=== PATIENT | male | born 1940 | race Caucasian/White ===

== ENCOUNTER 2021-02-13 08:08 | Emergency (ER) | payer OTHER, MEDICARE, BC ==
[~2021-02-13] VITALS: Ht 185.4 cm; Wt 89.8 kg
[2021-02-13] MEDS ORDERED: BRIMONIDINE TART5 M1 BOTHEYES (08:26)
[2021-02-13] MEDS ORDERED: TIMDOROPSO BOTHEYES (08:26)
[2021-02-13] MEDS ORDERED: LATA.005SO BOTHEYES (08:27)
[2021-02-13] MEDS ORDERED: RHOPRESSA2.5 ML BOTHEYES (08:27)
[2021-02-13] MEDS ORDERED: LEVSOD25 PO (08:28)
[2021-02-13] MEDS ORDERED: METF500 PO (08:28)
[2021-02-13] MEDS ORDERED: LIPITOR80 MG PO (08:29)
[2021-02-13] MEDS ORDERED: VENL75ER PO (08:30)
[2021-02-13] MEDS ORDERED: ASPI81CH PO (08:35)
== END 2021-02-13 10:45 | disposition home or self-care (01) ==
LOC: ER 08:08
DX: S01.81XA Laceration without foreign body of other part of head, initial encounter (principal); M25.512 Pain in left shoulder; E11.9 Type 2 diabetes mellitus without complications; E03.9 Hypothyroidism, unspecified; Z88.0 Allergy status to penicillin; Z79.899 Other long term (current) drug therapy; Z79.82 Long term (current) use of aspirin; Z23 Encounter for immunization; W18.30XA Fall on same level, unspecified, initial encounter; Y92.009 Unspecified place in unspecified non-institutional (private) residence as the place of occurrence of the external cause
CPT/HCPCS: 12011; 70450; 72125; 73030; 90471; 90714; 99284-25; A9270

== ENCOUNTER 2024-12-06 04:38 | Inpatient (IN) | payer OTHER, MEDICARE ==
[~2024-12-06] VITALS: Ht 182.9 cm; Wt 81.0 kg
[2024-12-06] VITALS (63 sets, daily range): BP systolic 91–165; BP diastolic 44–81
[~2024-12-06 04:38] MED LIST: ASPI81CH PO; BRIMONIDINE TART5 M1 BOTHEYES; LATA.005SO BOTHEYES; LEVSOD25 PO; LIPITOR80 MG PO; METF500 PO; RHOPRESSA2.5 ML BOTHEYES; TIMDOROPSO BOTHEYES; VENL75ER PO
[2024-12-06] MEDS ORDERED: Dopamine/Dextrose 250 ML IV SCH (05:00)
[2024-12-06] MEDS ORDERED: NS 1,000 ML IV SCH (05:05)
[2024-12-06] MEDS ORDERED: Midazolam HCL 50 MG in NS 40 ML IV PRN (05:05)
[2024-12-06] MEDS ORDERED: fentaNYL citrate 1,000 MCG in NS 80 ML IV SCH (05:10)
[2024-12-06 05:13] LABS: BASOPHILS ABSOLUTE AUTO 0.06 K/mm3 (0.00-0.23); BASOPHILS PERCENT AUTO 1 % (0-2); EOSINOPHILS ABSOLUTE AUTO 0.58 K/mm3 (0.00-0.68); EOSINOPHILS PERCENT AUTO 6 % (0-6); Hemoglobin 13.4 g/dL (13.5-17.5); IMMATURE GRAN ABSOLUTE AUTO 0.04 K/mm3 (0.00-0.10); IMMATURE GRAN PERCENT AUTO 0 % (0-1); LYMPHOCYTES ABSOLUTE AUTO 2.28 K/mm3 (0.84-5.20); LYMPHOCYTES PERCENT AUTO 24 % (21-46); MONOCYTES ABSOLUTE AUTO 0.76 K/mm3 (0.16-1.47); MONOCYTES PERCENT AUTO 8 % (4-13); Mean Corpuscular HGB 31.5 pg (26.0-34.0); Mean Corpuscular HGB Conc 31.9 g/dL (31.5-36.5); Mean Corpuscular Volume 99 fL (80-100); Mean Platelet Volume 10.2 fL (9.1-12.4); NEUTROPHILS ABSOLUTE AUTO 5.92 K/mm3 (1.96-9.15); NEUTROPHILS PERCENT AUTO 61 % (41-73); Platelet Count 360 K/mm3 (150-400); RDW Standard Deviation 47.3 fL (35.1-46.3); Red Blood Cell Count 4.25 M/mm3 (4.30-5.90); White Blood Cell Count 9.64 K/mm3 (4.00-11.30)
[2024-12-06] MEDS ORDERED: LORazepam 2 MG/ML 1ML Injection IV ONE (05:15)
[2024-12-06 05:22] LABS: PCO2 Arterial 36.4 mmHg (35-45); PO2 Arterial 345 mmHg (80-100)
[2024-12-06 05:26] LABS: Acetaminophen, Random <2.0 ug/mL (10.0-30.0); Alanine Aminotransfer (ALT/SGP 49 U/L (12-78); Albumin, Blood 2.9 g/dL (3.4-5.0); Alk Phos 89 U/L (50-136); Anion Gap 10 mmol/L (3-11); Aspartate Aminotrans (AST/SGOT 55 U/L (12-37); Bilirubin, Total 0.4 mg/dL (0.1-1.0); Blood Urea Nitrogen 19 mg/dL (8-24); Bun/Creatinine Ratio 24.1 (12.0-20.0); CO2, Blood 23 mmol/L (21-32); Chloride, Blood 108 mmol/L (98-108); Creatinine, Blood 0.79 mg/dL (0.60-1.20); Ethanol (Alcohol), Blood, Med <3 mg/dL; Globulin, Blood 2.9 g/dL (2.2-4.0); Glomerular Filtration Rate 88 (60-); Glucose, Blood 195 mg/dL (70-99); Magnesium, Blood 1.9 mg/dL (1.6-2.4); Salicylate <1.7 mg/dL (2.8-20.0); Sodium, Blood 137 mmol/L (136-145); Total Protein, Blood 5.8 g/dL (6.4-8.2)
[2024-12-06 05:45] LABS: Source, Urine Clean Catch
[2024-12-06 05:45] LABS: D-Dimer, Quantitative 0.7 mg/L FEU (0.00-0.52); International Normalized Ratio 1.02; Prothrombin Time Results 10.9 Sec (9.7-11.5)
[2024-12-06 05:48] LABS: Appearance, Urine Clear (Clear); Bilirubin, Urine Neg (Neg); Blood, Urine 4+ (Neg); Color, Urine Yellow (P-Yellow); Glucose Qualitative, Urine 4+ (Neg); Ketones, Urine Neg (Neg); Leukocyte Esterase, Urine Neg (Neg); Nitrite, Urine Neg (Neg); Protein, Urine 2+ (Neg); Urobilinogen, Urine NORM (Normal)
[2024-12-06 05:55] LABS: Hyaline Casts 0-2 /lpf (0-2); Squamous Epithelial Cells Few /hpf (Few)
[2024-12-06 05:56] LABS: Bacteria Few /hpf; Red Blood Cells, Urine 50-100 /hpf (0-2); White Blood Cells, Urine 0-2 /hpf (0-5)
[2024-12-06] MEDS ORDERED: Ondansetron HCl 2 MG / ML 2ML Vial IV PRN (06:05)
[2024-12-06] MEDS ORDERED: Cetylpyridinium Chloride 1 EA MISC MT SCH (06:05)
[2024-12-06 06:36] LABS: Free Thyroxine 0.93 ng/dL (0.70-1.60); Thyroid Stimulating Hormone 14.4 uIU/mL (0.360-4.800)
[2024-12-06] MEDS ORDERED: Heparin Sodium 1000 Units/ML 10ML MDV ONE (06:37)
[2024-12-06] MEDS ORDERED: Midazolam HCl 1MG / ML 2ML Vial ONE (06:37)
[2024-12-06] MEDS ORDERED: NS 1,000 ML IV ONE (06:37)
[2024-12-06] MEDS ORDERED: FentaNYL Citrate 50 MCG/ML 2 ML Injection ONE (06:37)
[2024-12-06] MEDS ORDERED: NS 250 ML IV ONE (06:37)
[2024-12-06] MEDS ORDERED: propofoL 50 ML IV ONE (06:44)
--- NOTE | 2024-12-06 08:15 | NUR ---
ASSUMPTION OF CARE: ASSUMED CARE OF PT AT 0815, ON ARRIVAL TO ICU 13. PT COMING FROM INSULATION PACKER. PT ARRIVES W/ RIGHT IJ TVP, SETTINGS RATE 70, MA 5, MV 2. TVP AT 36CM AT INSERTION. PT IS INTUBATED AND SEDATED. PT VENT SETTINGS AC/VC 14/500/5/50. PT SLIGHTLY MOVES UPPER EXTREMITIES W/STIMULATION. LUNG PÉREZ CLEAR THROUGHOUT,DIMINISHED AT BASES. ABD SOFT TO PALPATION. TEMP SALCEDO IN PLACE, PATENT AND DRAINING TO GRAVITY. PT HAS PERIPHERAL IVS IN BILATERAL ACS. PROPOFOL DRIP INFUSING AT 30MCG/KG/MIN. DOPAMINE DRIP INFUSING AT 4MCG/KG/MIN. FENTANYL INFUSING AT 100MCG/KG/MIN.
[2024-12-06] MEDS ORDERED: propofoL 100 ML IV ONE (08:17)
[2024-12-06] MEDS ORDERED: Pantoprazole Sodium 40 MG Injection IV SCH (09:00)
[2024-12-06] MEDS ORDERED: JARDIANCE25 MG PO ×2 (09:28→13:44)
[2024-12-06] MEDS ORDERED: COLCHICINE0.6 MG PO (09:29)
[2024-12-06] MEDS ORDERED: ARTIFICIAL TEAR15 M2 OP (09:30)
[2024-12-06] MEDS ORDERED: MEMA10 PO (09:31)
[2024-12-06] MEDS ORDERED: SERT100 PO (09:31)
--- NOTE | 2024-12-06 09:56 | NUR ---
PT UPDATE: DR DIAS IN ROOM CONSULTING
--- NOTE | 2024-12-06 10:20 | NUR ---
PT UPDATE: PROPOFOL DRIP DC'D. PT TOLERATING WELL.
[2024-12-06] MEDS ORDERED: propofoL 100 ML IV SCH (11:40)
[2024-12-06] MEDS ORDERED: Hydrogen Peroxide 1.5 % Solution MT SCH (12:00)
[2024-12-06] MEDS ORDERED: BUSP5 PO (13:46)
[2024-12-06] MEDS ORDERED: IBUP800 PO (13:52)
--- NOTE | 2024-12-06 14:48 | NUR ---
PT UPDATE: PT EXTUBATED AT 1412 TODAY. PT TOLERATING WELL. RT AND DR DIAS IN ROOM DURING EXTUBATION.
[2024-12-06] MEDS ORDERED: CefTRIAXone Sodium 1,000 MG in NS 100 ML IV SCH (15:30)
[2024-12-06] MEDS ORDERED: Rocuronium Bromide 10 MG/ML 5ML Injection IV ONE (16:12)
--- NOTE | 2024-12-06 18:42 | NUR ---
SHIFT SUMMARY: PT IS A&O X3, ABLE TO ANSWER QUESTIONS APPROPRIATELY AND MAKE NEEDS KNOWN. PT IS NOW ON RA, SATS >90%. LUNGS SOUNDS REMAIN CLEAR T/O ALL PÉREZ. DENIES CHEST PAIN. TVP TO RIGHT IJ. SETTINGS REMAIN AT 70, 5, 2. TVP AT 36CM AT INSERTION. ABD SOFT, NO TENDERNESS. AFTER EXTUBATION PT C/O OF SOME NAUSEA, ZOFRAN GIVEN, NO C/O SINCE. PT REMAINS NPO, TOLERATING ORAL SWABS. TEMP SALCEDO IN PLACE, PATENT, DRAINING TO GRAVITY. PT HAS BILAT PERIPHERAL IVS IN BILATERAL ACS. PT DOES NOT HAVE ANYTHING INFUSING AT THIS TIME. THIS RN TO REPORT TO ONCOMING RN.
--- NOTE | 2024-12-06 22:06 | NUR ---
ASSUME CARE: BEDSIDE REPORT RECIEVED FROM DAYSCAFT RN. PT A/Ox4 AND ABLE TO ASSIST WITH BEDSIDE REPORT. SPO2>95 ON RA, NO COMPLAINTS OF SOB. SBP 110s, MAP>65, PT DENIES CP OR PRESSURE. MONITOR SHOWS SINUS RYTHM WITH PACED BEATS. TRANSVENOUS PACEMAKER DRESSING C/D/I TO RIJ, AT 35 CM IN LENGTH, RATE 70, OUTPUT 5, SENSE 2. TEMP SALCEDO IN PLACE DRAINING TO GRAVITY. CALL LIGHT IN REACH. WILL UPDATE NEEDED.
[2024-12-06] MEDS ORDERED: Acetaminophen 325 MG TABLET PO PRN (23:45)
[2024-12-07] VITALS (89 sets, daily range): BP systolic 98–142; BP diastolic 44–110
[2024-12-07 03:45] LABS: BASOPHILS ABSOLUTE AUTO 0.03 K/mm3 (0.00-0.23); BASOPHILS PERCENT AUTO 0 % (0-2); EOSINOPHILS ABSOLUTE AUTO 0.01 K/mm3 (0.00-0.68); EOSINOPHILS PERCENT AUTO 0 % (0-6); Hematocrit 40.7 % (37.0-53.0); Hemoglobin 13.2 g/dL (13.5-17.5); IMMATURE GRAN ABSOLUTE AUTO 0.07 K/mm3 (0.00-0.10); IMMATURE GRAN PERCENT AUTO 1 % (0-1); LYMPHOCYTES ABSOLUTE AUTO 1.03 K/mm3 (0.84-5.20); LYMPHOCYTES PERCENT AUTO 7 % (21-46); MONOCYTES ABSOLUTE AUTO 1.26 K/mm3 (0.16-1.47); MONOCYTES PERCENT AUTO 8 % (4-13); Mean Corpuscular HGB 30.8 pg (26.0-34.0); Mean Corpuscular HGB Conc 32.4 g/dL (31.5-36.5); Mean Corpuscular Volume 95 fL (80-100); NEUTROPHILS ABSOLUTE AUTO 12.59 K/mm3 (1.96-9.15); NEUTROPHILS PERCENT AUTO 84 % (41-73); Platelet Count 354 K/mm3 (150-400); RDW Coefficient Variation 13.4 % (11.7-14.2); RDW Standard Deviation 46.8 fL (35.1-46.3); Red Blood Cell Count 4.28 M/mm3 (4.30-5.90); White Blood Cell Count 14.99 K/mm3 (4.00-11.30)
[2024-12-07 04:17] LABS: Albumin, Blood 3.1 g/dL (3.4-5.0); Bilirubin, Total 0.7 mg/dL (0.1-1.0); Creatinine, Blood 0.63 mg/dL (0.60-1.20); Free Thyroxine 1.05 ng/dL (0.70-1.60); Potassium, Blood 3.7 mmol/L (3.5-5.5); Thyroid Stimulating Hormone 1.16 uIU/mL (0.360-4.800); Total Protein, Blood 6.1 g/dL (6.4-8.2)
--- NOTE | 2024-12-07 05:11 | NUR ---
SHIFT SUMMARY: PT A/Ox4 AND PLEASANT WITH CARE T/O THE NIGHT, ABLE TO MAKE NEEDS KNOWN. PT DESAT TO 86% WITH SLEEP, 2L NC APPLIED, SPO2>90%. ALL OTHER VSS. TRANSVENOUS PACEMAKER IN PLACE, DRESSING C/D/I, NO CHANGES SINCE ASSUME CARE NOTE. SALCEDO PATENT DRAINING TO GRAVITY. PT ABLE TO TAKE SIPS OF WATER WITH MED ADMINISTRATION WITH NO ISSUES. PT FEBRILE T/O THE NIGHT, TMAX 100.5, MEDICATED PER EMAR. WILL REPORT TO ONCOMING RN.
[2024-12-07] MEDS ORDERED: Levothyroxine Sodium 0.075 MG Tab PO SCH (06:00)
--- NOTE | 2024-12-07 09:47 | NUR ---
ASSUMPTION OF CARE: ASSUMED CARE OF PT AT 0700. PT RESTING PEACEFULLY, STIRS SLIGHTLY TO VERBAL STIMULI. PT ON RA. SATS >90% PER NOC RN, PT WAS PLACED ON 2L VIA NC WHEN SLEEPING BECAUSE SATS WOULD DROP INTO 80%. BREATHING UNLABORED. SBP IN 100-120S. HR 70S,SOMETIMES DROPPING INTO HIGH 60S. NO N/V REPORTED. TEMP SALCEDO REMAINS IN PLACE, PATENT, DRAINING KEM URINE TO GRAVITY. PT HAS NEW R WRIST PERIPHERAL IV AND LAC IV. NOTHING RUNNING AT THIS TIME. THIS RN TO CONTINUE TO MONITOR.
--- NOTE | 2024-12-07 18:46 | NUR ---
SHIFT SUMMARY: PT REMAINS A&OX4. ABLE TO COMMUNICATE HIS NEEDS. PT SBP HAS BEEN IN 110S-130S. HR 70S. SINUS PACED. PT HAS TVP TO RIGHT IJ. SETTINGS REMAIN AT 70,5,2. TVP AT 36CM AT INSERTION. PT REMAINS ON RA, SATS >90%. BREATHING UNLABORED. LUNG PÉREZ CLEAR T/O. ABD SOFT, NO TENDERNESS OR DISTENTION NOTED. PT HAS BEEN TOLERATING SOLIDS AND EATING INDEPENDENTLY. NOELLE SALCEDO REMOVED TODAY, PT USING URINAL W/MIN ASSISTANCE. THIS RN TO REPORT TO ONCOMING RN.
--- NOTE | 2024-12-07 19:57 | NUR ---
ASSUME CARE: BEDSIDE REPORT RECIEVED FROM DAYSHIFT. PT A/Ox4 AND PLEASANT WITH CARE. PT ABLE TO MAKE NEEDS KNOWN, AND INSTRUCTED TO USE CALL LIGHT FOR ANY NEEDS. PT AWARE AND AGREEABLE OF CURRENT PLAN FOR NPO AT 2200 FOR PROCEDURE IN THE AM. VSS. TEMP PACEMAKER IN PLACE TO RIJ, DRESSING C/D/I. WILL UPDATE NEEDED.
[2024-12-08] VITALS (47 sets, daily range): BP systolic 108–157; BP diastolic 30–104
--- NOTE | 2024-12-08 05:29 | NUR ---
SHIFT SUMMARY: PT A/Ox4 AND PLEASANT W/CARE T/O THE NIGHT. PT EXPRESSES THAT HE IS ANXIOUS ABOUT FUTURE PROCEDURES, AND DID NOT GET MUCH SLEEP. VSS, AFEBFRILE T/O NIGHT. MONITOR SHOWS SINUS RYTHM W/PACED BEATS. TEMP PACEMAKER TO RIJ, DRESSING C/D/I. PT NPO SINCE 2199 LAST NIGHT FOR PROCEDURE IN AM. PT USES URINAL AT BEDSIDE, URINE DARK YELLOW, LITTLE OUTPUT LAST NIGHT. PT COMPLAINS OF PAIN WHEN HE URINATES DUE TO PRIOR SALCEDO. PT ALSO COMPLAINS OF PAIN IN HIS KNEES DUE TO FALL AT HOME, REPOSITIONED AND MEDICATED PER EMAR. WILL REPORT TO ONCOMING RN.
[2024-12-08] MEDS ORDERED: EpiNEPhrine 1 MG/1 ML 1ML Vial ONE (06:17)
[2024-12-08] MEDS ORDERED: Benzocaine Oral Spray 0.5ML UD ONE (06:41)
[2024-12-08] MEDS ORDERED: NS 1,000 ML IV ONE ×3 (07:18→14:46)
--- NOTE | 2024-12-08 07:26 | NUR ---
PT PREPPED BY AND CARRILLO HORTA. CK IN TO START PROCEDURE.
--- NOTE | 2024-12-08 07:51 | NUR ---
PROCEDURE COMPLETE, 260MCG PROPOFOL FROM . PT WAKING UP SOME, AND SON IN THE ROOM.
[2024-12-08] MEDS ORDERED: CeFAZolin Sodium 2,000 MG in NS 100 ML IV SCH ×2 (08:45→23:00)
[2024-12-08] MEDS ORDERED: NS 1,000 ML IV SCH (08:45)
[2024-12-08 09:11] LABS: BASOPHILS ABSOLUTE AUTO 0.06 K/mm3 (0.00-0.23); BASOPHILS PERCENT AUTO 1 % (0-2); EOSINOPHILS ABSOLUTE AUTO 0.26 K/mm3 (0.00-0.68); EOSINOPHILS PERCENT AUTO 2 % (0-6); Hematocrit 41.4 % (37.0-53.0); Hemoglobin 13.3 g/dL (13.5-17.5); IMMATURE GRAN ABSOLUTE AUTO 0.04 K/mm3 (0.00-0.10); IMMATURE GRAN PERCENT AUTO 0 % (0-1); LYMPHOCYTES ABSOLUTE AUTO 0.89 K/mm3 (0.84-5.20); LYMPHOCYTES PERCENT AUTO 8 % (21-46); MONOCYTES ABSOLUTE AUTO 1.26 K/mm3 (0.16-1.47); MONOCYTES PERCENT AUTO 12 % (4-13); Mean Corpuscular HGB Conc 32.1 g/dL (31.5-36.5); Mean Corpuscular Volume 97 fL (80-100); NEUTROPHILS ABSOLUTE AUTO 8.32 K/mm3 (1.96-9.15); NEUTROPHILS PERCENT AUTO 77 % (41-73); Platelet Count 314 K/mm3 (150-400); RDW Coefficient Variation 13.3 % (11.7-14.2); RDW Standard Deviation 47.7 fL (35.1-46.3); Red Blood Cell Count 4.29 M/mm3 (4.30-5.90); White Blood Cell Count 10.83 K/mm3 (4.00-11.30)
[2024-12-08 09:15] LABS: Bun/Creatinine Ratio 43.2 (12.0-20.0); Calcium, Blood 8.2 mg/dL (8.5-10.1); Creatinine, Blood 0.56 mg/dL (0.60-1.20); Magnesium, Blood 1.8 mg/dL (1.6-2.4); Potassium, Blood 3.5 mmol/L (3.5-5.5)
--- NOTE | 2024-12-08 12:45 | NUR ---
SPOKE WITH ABOUT PATIENT'S CONTINUED PAIN IN THE KNEES. REQUESTING ADDITIONAL TYLENOL DOSE BUT IT IS TOO SOON. ORDERS MORPHINE, HE IS NPO FOR PACEMAKER PLACEMENT THIS AFTERNOON.
[2024-12-08] MEDS ORDERED: Morphine Sulfate 4 MG/1 ML Injection IV PRN (12:50)
[2024-12-08] MEDS ORDERED: Lidocaine 2%-Epineph 1:100000 20 ML MDV ONE (13:56)
[2024-12-08] MEDS ORDERED: Heparin Sodium 1000 Units/ML 10ML MDV ONE ×4 (13:56→14:50)
[2024-12-08] MEDS ORDERED: NS 2,000 ML IV ONE (13:56)
[2024-12-08] MEDS ORDERED: Dorzolamide/Timolol Opth Soln 10 ML BOTHEYES SCH (14:00)
--- NOTE | 2024-12-08 14:19 | NUR ---
PT TO [facility]ER WITH [facility], CHARACTER IMPERSONATOR PATRICK WENT TO WATCH WELL.
[2024-12-08] MEDS ORDERED: Midazolam HCl 1MG / ML 2ML Vial ONE ×2 (14:37→15:11)
[2024-12-08] MEDS ORDERED: FentaNYL Citrate 50 MCG/ML 2 ML Injection ONE ×2 (14:37→15:09)
[2024-12-08] MEDS ORDERED: CeFAZolin Sodium 2,000 MG VIAL ONE (14:40)
[2024-12-08] MEDS ORDERED: NS 100 ML IV ONE (14:41)
[2024-12-08] MEDS ORDERED: HYDROcodone 5-APAP 325 TAB PO PRN (16:00)
[2024-12-08] MEDS ORDERED: OxyCODONE HCL 5 MG TAB PO PRN (16:00)
[2024-12-08] MEDS ORDERED: Propofol 10mg/ml 20 ml Vial (Procedural) IV ONE (16:30)
--- NOTE | 2024-12-08 17:13 | NUR ---
PT TRANSFERRED TO PCU 13, AFTER REPORT TO BARRY MCGARRY RN AND UPDATE TO THE PATIENT AND FAMILY. PT IS AWARE OF NO MOVEMENT OF RIGHT LEG FOR DURATION OF THE 4 HOUR TIME FRAME. VISUAL CHECK OF RIGHT GROIN SITE AND RIGHT JUGULAR WITH BARRY AT BEDSIDE.
--- NOTE | 2024-12-08 17:46 | NUR ---
Pt arrived to PCU around 5 pm after telephone report received from SHADE Yeboah. Pt in PCU 13, and son at bedside. PT right groin site noted to have closure device in place, no bleeding, no swelling, no bruising noted. gauze and tegederm dressing surrounding the device which to remain in place until Dr. Casper removes it in the morning. Requested materials for that removal were placed at bedside at this time. Pt has good distal pulses, good circulation and is in sinus rhythm at 89 bpm. Vital signs are stable and the pt has no c/o pain nor discomfort. He is drinking and voiding without difficulty. Remains in the supine position with the right leg straight until 1930.
[2024-12-09 03:33] VITALS: BP 121/58
[2024-12-09 04:17] LABS: BASOPHILS ABSOLUTE AUTO 0.05 K/mm3 (0.00-0.23); BASOPHILS PERCENT AUTO 0 % (0-2); EOSINOPHILS ABSOLUTE AUTO 0.29 K/mm3 (0.00-0.68); EOSINOPHILS PERCENT AUTO 3 % (0-6); Hematocrit 41.9 % (37.0-53.0); Hemoglobin 13.4 g/dL (13.5-17.5); IMMATURE GRAN ABSOLUTE AUTO 0.06 K/mm3 (0.00-0.10); IMMATURE GRAN PERCENT AUTO 1 % (0-1); LYMPHOCYTES ABSOLUTE AUTO 0.87 K/mm3 (0.84-5.20); LYMPHOCYTES PERCENT AUTO 7 % (21-46); MONOCYTES ABSOLUTE AUTO 1.42 K/mm3 (0.16-1.47); MONOCYTES PERCENT AUTO 12 % (4-13); Mean Corpuscular HGB 30.9 pg (26.0-34.0); Mean Corpuscular Volume 97 fL (80-100); NEUTROPHILS ABSOLUTE AUTO 9.11 K/mm3 (1.96-9.15); NEUTROPHILS PERCENT AUTO 77 % (41-73); Platelet Count 297 K/mm3 (150-400); RDW Standard Deviation 46.9 fL (35.1-46.3); Red Blood Cell Count 4.33 M/mm3 (4.30-5.90)
[2024-12-09 04:43] LABS: Bun/Creatinine Ratio 45.3 (12.0-20.0); Calcium, Blood 8.4 mg/dL (8.5-10.1); Creatinine, Blood 0.49 mg/dL (0.60-1.20); Magnesium, Blood 1.8 mg/dL (1.6-2.4); Potassium, Blood 4.1 mmol/L (3.5-5.5)
--- NOTE | 2024-12-09 05:32 | NUR ---
SHIFT SUMMARY PT A&O X4, CALM, COOPERATIVE TO CARE. HR IN THE 70'S-80'S, SINUS RHYTHM, HE DENIES CP/PRESSURE, NUMB/TINGLING, SBP STABLE. O2 >92% ON RA, WHILE ASLEEP PT DID DESAT TO THE LOW 70'S BUT RECOVERED QUICKLY. HE DENIES SOB AT THIS TIME. PT WITH RIGHT GROIN SITE FROM PACEMAKER INSERTION. PRESSURE DEVICE IN PLACE, T BE REMOVED THIS SHIFT. SITE COVERED WITH GAUZE AND TEGADERM , C/D/I. PT ALSO HAS RIGHT NECK SITE FROM TEMPORARY PACER, SITE COVERED WITH GUAZE AND TEGADERM, C/D/I. PT WITH PAIN IN BILATERAL KNEES, MEDICATING PER EMAR. EKG COMPLETED THIS AM. PT RESTING IN BED AT THIS TIME. CALL LIGHT IN REACH. WILL REPORT TO ONCOMING RN.
--- NOTE | 2024-12-09 07:04 | NUR ---
Bedside shift report received from Christel. Pt states that he has not been out of bed, and doesn't even want to try because his knees are much too painful. They are both swollen and pt states he thinks that he fell on his knees when he passed out at home.
[2024-12-09 07:34] VITALS: BP 121/60
--- NOTE | 2024-12-09 08:34 | NUR ---
Dr. Casper here, removed closure device in the right groin and applied dressing which should stay in place and be kept dry for 1 week. Grease Maker states ok for discharge or transfer to medical floor without telemetry per hospitalist depending on pt's ambulatory status.
[2024-12-09] MEDS ORDERED: TIMO.5OPSO BOTHEYES (09:18)
[2024-12-09] MEDS ORDERED: PRED FORTE5 ML BOTHEYES (09:19)
[2024-12-09] MEDS ORDERED: OCUFLOX511 BOTHEYES (09:21)
--- NOTE | 2024-12-09 10:01 | NUR ---
Ice packs applied to both knees for relief of swelling and pain.
--- NOTE | 2024-12-09 11:04 | NUR ---
Up to [facility] [place], walker and 2 person staff assist. Personal hygiene completed while he was up. PT and OT have called and will come see the patient shortly.
[2024-12-09] MEDS ORDERED: Colchicine 0.6 MG TAB PO SCH (12:35)
[2024-12-09] MEDS ORDERED: Sennosides 8.6 MG Tab PO SCH (12:35)
[2024-12-09] MEDS ORDERED: Empagliflozin 25 MG TAB PO SCH (12:40)
--- NOTE | 2024-12-09 13:44 | NUR ---
Pt tolerated BSC and therapy sessions today. Sitting up in chair, states that he is feeling better after activity and norco tablet. Requested bowel care which was given to him. Dr. Fry resumed some home medications, communicated this to patient and his Estefanía.
[2024-12-09] MEDS ORDERED: Timolol 0.5% Opth Soln 5 ML BOTHEYES SCH (14:00)
[2024-12-09] MEDS ORDERED: Ofloxacin 0.3% Opth Soln 5 ML BOTHEYES SCH (14:00)
[2024-12-09 14:44] LABS: LYME VLSE1/PEPC10 ABS, ELISA 0.21 IV (<=0.90)
--- NOTE | 2024-12-09 15:37 | NUR ---
Pt states he is feeling pretty good after working with physical therapist, and walking in the hallway. Pt education started for Leadless paceaker insertion, care after as well as care of femoral access site. He was also given information about his follow up appointment for next December 16 at 0800 for the wound check. pt was instructed that he is to keep the right groin site clean and dry, no showering/baths/hot tubs until his wound check appointment. He verbalized understanding.
[2024-12-09 15:39] VITALS: BP 139/63
[2024-12-09 19:49] VITALS: BP 136/59
[2024-12-09] MEDS ORDERED: Memantine HCL 5 MG Tab PO SCH (21:00)
[2024-12-09] MEDS ORDERED: Latanoprost 0.005% Opth Soln 2.5 ML RIGHTEYE SCH (21:00)
[2024-12-09] MEDS ORDERED: NETARSUDIL 0.02% RIGHTEYE SCH (21:00)
[2024-12-09] MEDS ORDERED: Timolol 0.5% Opth Soln 5 ML LEFTEYE SCH (21:00)
[2024-12-09] MEDS ORDERED: PrednisoLONE 1% Opth Susp 5 ML BOTHEYES SCH (21:00)
[2024-12-09] MEDS ORDERED: PrednisoLONE 1% Opth Susp 5 ML LEFTEYE SCH (21:00)
[2024-12-09] MEDS ORDERED: Brimonidine Tartrate 0.2% Opth 5 ml RIGHTEYE SCH (21:00)
[2024-12-10 03:31] VITALS: BP 18/94
--- NOTE | 2024-12-10 06:17 | NUR ---
SHIFT SUMMARY: PT IS ALERT AND OIENTED ABLE TO MAKE HIS NEEDS KNOWN, NO TELE ORDERS AT THIS TIME, LUNGS CLEAR ON RA, CONT OF BAB, PT DID ENDORSE BURNING WITH URINATION, NO OTHER S,SX OF POTENTIAL INFETION, PT DID HAVE A SALCEDO INSERTED AND REMOVED POTENTIAL FOR TRAMATIC INSERTIN MICRO TEARS WILL PASS ON TO DAY RN TO CONTINUE TO MONITOR, 1 PERSON FWW,AMBULATES TO BATHROOM WITH STAFF, PT CAN USE CALL LIGHT APPROPRIATELY BUT HAS BED ALARM ON BECAUSE OF INTERMITENT FORGETFULLNESS, PT IS PLEASANT AND COOPERATIVE WITH CARES, CALL LIGHT AND FREQUENTLY IMS WITH IN REACH AT THIS TIME.
[2024-12-10 07:53] VITALS: BP 139/69
[2024-12-10 11:57] VITALS: BP 118/51
--- NOTE | 2024-12-10 14:18 | NUR ---
NOTIFIED DR. SEXTON OF PATIENT'S ELEVATED BLOOD SUGAR. NO NEW ORDERS.
[2024-12-10 15:31] VITALS: BP 110/55
[2024-12-10] MEDS ORDERED: MetFORMIN HCl 500 mg PO SCH (17:00)
[2024-12-10] MEDS ORDERED: Dorzolamide/Timolol Opth Soln 10 ML BOTHEYES SCH (17:00)
--- NOTE | 2024-12-10 17:10 | NUR ---
SHIFT SUMMARY: PATIENT IS A&OX4/FORGETFUL AT TIMES; PLEASANT AND COOPERATIVE WITH CARE, IS SARCASTIC/JOKES AROUND. PATIENT IS A 1 PERSON ASSIST WITH THE FWW/GAITBELT AND IS A SBA WITH AMBULATION. PATIENT DIDN'T C/O PAIN UNTIL END OF SHIFT IN BILTERAL KNEES AND IMPROVED WITH TYLENOL. PATIENT ENCOURAGED TO AMBULATE IN HALLS THIS AFTERNOON, BUT DECLINED DUE TO WISHES TO REST. PATIENT IN BED, CALL LIGHT WITHIN REACH, NO SIGNS OR SYMPTOMS OF DISTRESS, PLAN OF CARE ONGOING; MEDICAL FLOOR STATUS. D/C WITH HH VERSUS SNF (PT'S IS PUSHING FOR SNF)
--- NOTE | 2024-12-10 18:14 | NUR ---
HAD CONVERSATION WITH THE PATIENT'S SON JERE. HE EXPRESSES CONCERN WITH HIS MOTHER; THE PATIENT'S THAT SHE IS BEING RESISTANCE TO ALLOWING THE PATIENT TO DISCHARGE HOME WITH HOME HEALTH SERVICES. SHE FEELS THAT THE PATIENT IS NOT WELL ENOUGH TO COME HOME AND FEARS THAT HE IS GOING TO FALL AND THAT SHE IS TOO DECLINED TO TAKE CARE OF HIM. BASED ON THIS RN AND PHYSICAL THERAPY EVALUATION; HOME WITH HOME HEALTH APPEARS APPROPRIATE. THE PATIENT'S SON JERE STATES THAT THE PATIENT AND HIS MOTHER HAVE HIS AND HIS 'S SUPPORT, BUT REGUARDLESS OF REASSURANCE THAT PATIENT'S CONTINUES TO ARGUE AND IS EXPRESSING THAT SHE SHOULD'VE LET THE PATIENT AND THAT SHE KNOWS THE PATIENT AND THAT HE ISN'T WELL. EDUCATED THE PATIENT'S AND FAMILY THE DECONITIONING THAT COMES WITH HIS AGE AND HAVING AN EVENT SUCH THE ONE HE HAD BRINGING HIM INTO THE HOSPITAL AND THAT IT WILL TAKE SOME TIME FOR THE PATIENT TO GET HIS STRENGTH BACK. THE PATIENT'S SON AND DAUGHTER IN LAW ARE BOTH AGREEABLE AND FEEL THAT THE PATIENT CAN COME HOME AND IF THE PATIENT'S IS STILL ADAMANT ABOUT THE PATIENT NOT COMING HOME THAT THEN THE PATIENT CAN COME LIVE WITH HIM AND HIS . PER THE PATIENT'S SON THE PATIENT VOICES THAT HE WANTS TO LIVE, WANTS TO BE A FULL CODE, AND WANTS TO GO HOME. HE ALSO SHARED THAT HIS MOM; THE PATIENT'S IVAN IS ALSO HAVING COGNITIVE DECLINE. ACCORDING TO THE SON; THE PATIENT DOES NOT HAVE AN ADVANCED DIRECTIVE.
[2024-12-10 19:51] VITALS: BP 128/58
[2024-12-10] MEDS ORDERED: BusPIRone HCl 5 MG Tab PO SCH (21:00)
[2024-12-11 03:34] VITALS: BP 129/64
[2024-12-11 05:22] LABS: Bun/Creatinine Ratio 34.8 (12.0-20.0); Calcium, Blood 8.1 mg/dL (8.5-10.1); Creatinine, Blood 0.49 mg/dL (0.60-1.20); Potassium, Blood 3.6 mmol/L (3.5-5.5)
--- NOTE | 2024-12-11 05:23 | NUR ---
SHIFT SUMMARY NO ACUTE CHANGES OVERNIGHT. VSS ON RA. NOT ON TELE. PT HAD NO C/O CP OR PRESSURE. R GROIN ACCESS SITE C/D/I. PT AMBULATING TO BATHROOM WELL WITH 1A & FWW WITH GAITBELT. PT REQUESTED PRN TYLENOL FOR MINOR KNEE PAIN, GIVEN WITH GOOD RELIEF. NO FURTHER QUESTIONS OR CONCERNS AT THIS TIME. CALL QUINTEROS WITHIN REACH WITH BED ALARM SET. WILL CONTINUE WITH PLAN OF CARE.
[2024-12-11 08:12] VITALS: BP 113/55
[2024-12-11] MEDS ORDERED: Peg 400/Hypromellose/Glycerin 15 DROP/ML BTL BOTHEYES SCH (09:00)
[2024-12-11] MEDS ORDERED: Sertraline HCl 100 MG Tab PO SCH (09:00)
[2024-12-11] MEDS ORDERED: Polyethylene Glycol 3350 17 gm PO SCH (09:00)
[2024-12-11] MEDS ORDERED: MIRALAX17 GM PO (13:34)
[2024-12-11] MEDS ORDERED: Acetaminophen650 M1 PO (13:34)
--- NOTE | 2024-12-11 15:35 | NUR ---
PT A&OX4 CALM AND COOPERATIVE. PT SBA TO BATHROOM AND CHAIR. BED/CHAIR ALARM ON. PT EDUCATED ON DISCHARGE AND VERBALIZED UNDERSTANDING. PT DISCHARGED WITH FAMILY AT BEDSIDE. MEDS SENT TO PT REQUESTED PHARMACY, PT STATES FOLLOW UP APPOINTMENTS MADE, AND HOME HEALTH ARRANGED.
== END 2024-12-11 18:23 | disposition home health service (06) | DRG 228 ==
LOC: ER 04:38 → ICUE 05:50 → PCU 05:50 → ICUE 07:26 → PCU 12-08 17:00
PROVIDERS: Emergency Medicine; Internal Medicine; Internal Medicine Critical Care Medicine; ADMIT Internal Medicine
PROC: 0BH17EZ Insertion of Endotracheal Airway into Trachea, Via Natural or Artificial Opening (ICD-10-PCS; 2024-12-06)
PROC: 5A1935Z Respiratory Ventilation, Less than 24 Consecutive Hours (ICD-10-PCS; 2024-12-06)
PROC: 5A1223Z Performance of Cardiac Pacing, Continuous (ICD-10-PCS; 2024-12-06)
PROC: 02HK3NZ Insertion of Intracardiac Pacemaker into Right Ventricle, Percutaneous Approach (ICD-10-PCS; principal; 2024-12-08)
DX: I44.2 Atrioventricular block, complete (principal); G92.8 Other toxic encephalopathy; J96.01 Acute respiratory failure with hypoxia; R57.0 Cardiogenic shock; F03.93 Unspecified dementia, unspecified severity, with mood disturbance; F03.94 Unspecified dementia, unspecified severity, with anxiety; T42.4X1A Poisoning by benzodiazepines, accidental (unintentional), initial encounter; E11.9 Type 2 diabetes mellitus without complications; E03.9 Hypothyroidism, unspecified; H40.9 Unspecified glaucoma; E78.5 Hyperlipidemia, unspecified; I10 Essential (primary) hypertension; K04.7 Periapical abscess without sinus; I45.2 Bifascicular block; M10.9 Gout, unspecified; E86.0 Dehydration; K21.9 Gastro-esophageal reflux disease without esophagitis; Z88.2 Allergy status to sulfonamides; Z88.0 Allergy status to penicillin; Z79.82 Long term (current) use of aspirin; Z79.890 Hormone replacement therapy; Z79.84 Long term (current) use of oral hypoglycemic drugs
CPT/HCPCS: 31500; 33210; 33274; 36415; 36600; 51702; 70450; 71045; 71046; 71260; 72125; 74177; 76937; 80048; 80053; 80320; 81001; 82140; 82803; 82947; 83605; 83735; 84100; 84439; 84443; 84484; 85025; 85379; 85610; 85730; 86618; 87040; 93005; 93010; 93306; 93312; 93325; 94002; 94760; 96374-59; 97110; 97112; 97161; 97165; 97530; 99152; 99153; 99285-25; A9270; C1769; C1786; C1894; G0480; J0171; J0690; J0696; J1265; J1644; J2060; J2250; J2270; J2405; J2470; J2704; J3010; J7030; J7050; J7060; Q9967

== ENCOUNTER 2025-01-01 18:28 | Emergency (ER) | payer OTHER, MEDICARE ==
[~2025-01-01] VITALS: Ht 190.5 cm; Wt 81.7 kg
[~2025-01-01 18:28] MED LIST changes: +ARTIFICIAL TEAR15 M2 OP; +Acetaminophen650 M1 PO; +BUSP5 PO; +COLCHICINE0.6 MG PO; +IBUP800 PO; +JARDIANCE25 MG PO; +MEMA10 PO; +MIRALAX17 GM PO; +OCUFLOX511 BOTHEYES; +PRED FORTE5 ML BOTHEYES; +SERT100 PO; +TIMO.5OPSO BOTHEYES
[2025-01-01 18:52] LABS: BASOPHILS ABSOLUTE AUTO 0.05 K/mm3 (0.00-0.23); BASOPHILS PERCENT AUTO 1 % (0-2); EOSINOPHILS ABSOLUTE AUTO 0.42 K/mm3 (0.00-0.68); EOSINOPHILS PERCENT AUTO 5 % (0-6); Hematocrit 44.2 % (37.0-53.0); Hemoglobin 14.5 g/dL (13.5-17.5); IMMATURE GRAN ABSOLUTE AUTO 0.02 K/mm3 (0.00-0.10); IMMATURE GRAN PERCENT AUTO 0 % (0-1); LYMPHOCYTES ABSOLUTE AUTO 1.69 K/mm3 (0.84-5.20); LYMPHOCYTES PERCENT AUTO 20 % (21-46); MONOCYTES ABSOLUTE AUTO 0.65 K/mm3 (0.16-1.47); MONOCYTES PERCENT AUTO 8 % (4-13); Mean Corpuscular HGB 31.2 pg (26.0-34.0); Mean Corpuscular HGB Conc 32.8 g/dL (31.5-36.5); Mean Corpuscular Volume 95 fL (80-100); Mean Platelet Volume 10.1 fL (9.1-12.4); NEUTROPHILS ABSOLUTE AUTO 5.61 K/mm3 (1.96-9.15); NEUTROPHILS PERCENT AUTO 67 % (41-73); Platelet Count 371 K/mm3 (150-400); RDW Coefficient Variation 13.2 % (11.7-14.2); RDW Standard Deviation 46.2 fL (35.1-46.3); Red Blood Cell Count 4.65 M/mm3 (4.30-5.90); White Blood Cell Count 8.44 K/mm3 (4.00-11.30)
[2025-01-01 19:10] LABS: Albumin, Blood 3.3 g/dL (3.4-5.0); Albumin/Globulin Ratio 0.9 (0.8-1.8); Bilirubin, Total 0.4 mg/dL (0.1-1.0); Bun/Creatinine Ratio 18.3 (12.0-20.0); Calcium, Blood 9.1 mg/dL (8.5-10.1); Creatinine, Blood 0.93 mg/dL (0.60-1.20); Globulin, Blood 3.6 g/dL (2.2-4.0); Potassium, Blood 4.2 mmol/L (3.5-5.5); Total Protein, Blood 6.9 g/dL (6.4-8.2)
[2025-01-01 22:00] VITALS: BP 134/76
== END 2025-01-01 22:00 | disposition home or self-care (01) ==
LOC: ER 18:28
PROVIDERS: Student in an Organized Health Care Education/Training Program
DX: R42 Dizziness and giddiness (principal); Z95.0 Presence of cardiac pacemaker; Z79.890 Hormone replacement therapy; Z79.84 Long term (current) use of oral hypoglycemic drugs
CPT/HCPCS: 71046; 80053; 83690; 84484; 85025; 93005; 93010; 99284-25